=== PATIENT | female | born 2000 | race Caucasian/White ===

== ENCOUNTER 2019-07-04 10:05 | Day surgery (SDC) | payer BC ==
[2019-07-04] VITALS (19 sets, daily range): BP systolic 113–140; BP diastolic 49–81; PULSE 77–85; RESP 15–22; Ht 160 cm; Wt 113.3 kg
[~2019-07-04] VITALS: Ht 160 cm; Wt 113.3 kg
[~2019-07-04 10:05] MED LIST: CEFAZOLIN 2 GM/50 ML (PMX) 50 ML IVPB SCH; KETOROLAC 30 MG INJ ONE; LIDOCAINE 1% (MDV) 20 ML INJ ONE; MIDAZOLAM 1 MG/ML 2 ML INJ ONE; OMEP20CA16 PO; PROPOFOL 20 ML ONE; ROCURONIUM 50 MG INJ ONE; ROPIVACAINE 0.5 % 30 ML VIAL ONE; SOD CHLORIDE 0.9% 1,000 ML IV ONE; SUGAMMADEX SODIUM 200 MG/2 ML VIAL IV ONE
--- NOTE | 2019-07-04 12:18 | PREAC ---
Date/Time of Note Date/Time of Note DATE: 07/04/19 TIME: 12:17 Anesthesia Eval and Record Evaluation Time Pre-Procedure Interview DATE: 07/04/19 TIME: 12:17 Age 18 Sex female NPO: 8 hrs Preoperative diagnosis ventral hernia Planned procedure repair with mesh Past Medical History Past Medical History: Includes GI: Morbid obesity Surgery & Anesthesia Issues No known issue Meds Anticoagulation: No Beta Chuyita within 24 hr: No Reason Beta Chuyita not given: Pt. not on B-Chuyita Reported Medications Omeprazole* (Omeprazole*) 20 Mg Capsule.dr, 20 MG PO DAILY, #30 CAP 07/04/19 Current Medications Cefazolin Sodium/ Dextrose 50 ml @ 100 mls/hr PRE-OP IVPB ; Start 07/04/19 at 06:00; Stop 07/04/19 at 15:00 Sodium Chloride 1,000 ml @ 75 mls/hr [id number] ONCE IV Last administered on 07/04/19at 11:12; Admin Dose 75 MLS/HR; Start 07/04/19 at 06:00; Stop 07/04/19 at 19:19 Meds reviewed: Yes Allergies Coded Allergies: No Known Allergy (Unverified , 07/04/19) Allergies Reviewed: Yes Labs/Studies Labs Reviewed: Reviewed by anesthesiologist test: Negative Pre-procedure Exam Last vitals Vital Signs Date Temp Pulse Resp B/P (MAP) Pulse Ox O2 O2 Flow FiO2 Time Delivery Rate 07/04/19 97.5 80 16 140/72 98 Room Air 11:12 (94) Airway: Adequate mouth opening, Adequate thyromental dist Mallampati: Mallampati IV Teeth: Normal Lung: Normal Heart: Normal ASA Physical Status ASA physical status: 2 Emergency: None Pre-operative Attestations Prior to commencing anesthesia and surgery, the patient was re-evaluated, there was verification of: *The patient's identity *The results of appropriate recent lab work and preoperative vital signs *The above evaluation not changing prior to induction *Anesthetic plan, risk benefits, alternative and complications discussed with patient/family; questions answered; patient/family understands, accepts and wishes to proceed. DEIRDRE MATTHEW DO Jul 04, 2019 12:18
[2019-07-04] MEDS ORDERED: MIDAZOLAM 1 MG/ML 2 ML INJ ONE ×2 (12:20→13:50)
[2019-07-04] MEDS ORDERED: SCOPOLAMINE 1.5 MG PATCH ONE (12:20)
[2019-07-04] MEDS ORDERED: LIDOCAINE 2% (SDV) 5 ML INJ ONE (12:20)
[2019-07-04] MEDS ORDERED: HYDROmorphONE 1 MG/5 ML IV SYRINGE IV PRN ×3 (12:30)
[2019-07-04] MEDS ORDERED: ROPIVACAINE 0.5 % 30 ML VIAL ONE (12:51)
[2019-07-04] MEDS ORDERED: POLYMYXIN/BACITRACIN 1L IRRIG IRR ONE (13:00)
[2019-07-04] MEDS ORDERED: CEFAZOLIN 1 GM INJ ONE (13:04)
[2019-07-04] MEDS ORDERED: ONDANSETRON 4 MG INJ ONE (13:05)
[2019-07-04] MEDS ORDERED: DEXAMETHASONE 4 MG/ML 5 ML INJ ONE (13:07)
[2019-07-04] MEDS ORDERED: KETOROLAC 30 MG INJ ONE ×2 (13:07→14:52)
[2019-07-04] MEDS ORDERED: SUGAMMADEX SODIUM 200 MG/2 ML VIAL IV ONE (13:42)
[2019-07-04] MEDS ORDERED: FENTAnyl 50 MCG/ML VIAL ONE (13:51)
--- NOTE | 2019-07-04 13:51 | OPR ---
Date/Time of Note Date/Time of Note DATE: 07/04/19 TIME: 13:46 Operative Report Procedure Date: Jul 04, 2019 Preoperative Diagnosis incarcerated ventral hernia Postoperative Diagnosis same Operation/Procedure Performed 1. open incarcerated ventral hernia repair cpt code 92630 2. implantation of polypropylene 15 cm x 15 cm mesh cpt code 48596 3. open lysis of adhesions 4. localized adjacent tissue transfer with the use of skin flaps 24 sq cm defect of the abdomen Surgeon see signature line Dish Technician none Anesthesia Type: general Estimated Blood Loss: 0 - 10 ml's Transfusion none Specimen hernia sac Grafts/Implants none Complications none Pt Condition Post Procedure: stable Indications This is a 18-year-old female with incarcerated large ventral hernia. She requires surgical repair. Risks alternatives benefits and personal were discussed the patient. Patient expressed understanding and consents to the operation. Procedure Description Patient is taken to the OR and prepped and draped in usual sterile fashion. Surgical timeout was performed. IV antibiotics given. Midline incision was made with a 10 blade. Dissection with cautery was carried down to the hernia. The hernia and the hernia sac is encountered. Lysis of adhesions was performed to allow meticulous mobilization of the hernia sac and contents. The hernia was then manually reduced. The hernia sac is then excised. Fascial edges were freshened and the fascia was identified. 15 x 15 cm Prolene mesh was then secured in place with interrupted #1 Prolene as an underlay mesh. Good hemostasis established. Overlying the mesh the hernia defect was then closed primarily with a running #1 loop PDS. Again good hemostasis established. The wound was then irrigated with antibiotic irrigation. Due to large tissue defect localization just transfer with his skin flaps were performed. Multilayer closed with interrupted 3-0 Vicryl and skin micheal. A tap block was provided by the anesthesiologist at the beginning the case. Dry dressings were applied. Josefina CHAPMAN Jul 04, 2019 13:51
[2019-07-04] MEDS ORDERED: HYDROCODONE/APAP (5/325) TAB PO ONE (14:00)
--- NOTE | 2019-07-04 14:15 | PAC ---
Date/Time of Note Date/Time of Note DATE: 07/04/19 TIME: 14:15 Post-Anesthesia Notes Post-Anesthesia Note Last documented vital signs Vital Signs Date Temp Pulse Resp B/P (MAP) Pulse Ox O2 O2 Flow FiO2 Time Delivery Rate 07/04/19 97.5 80 16 140/72 98 Room Air 11:12 (94) Activity: WNL Respiratory function: WNL Cardiovascular function: WNL Mental status: Baseline Pain reasonably controlled: Yes Hydration appropriate: Yes Nausea/Vomiting absent: Yes DEIRDRE MATTHEW DO Jul 04, 2019 14:15
[2019-07-04] MEDS ORDERED: KETOROLAC 30 MG INJ IV STA (14:44)
[2019-07-04] MEDS ORDERED: ACETAMINOPHEN 1000MG/100ML IV 100 ML ONE (14:52)
[2019-07-04] MEDS ORDERED: ACETAMINOPHEN 1000MG/100ML IV 100 ML IVPB ONE (15:00)
== END 2019-07-04 16:09 | disposition home or self-care (01) ==
LOC: SDS 10:05
PROVIDERS: ATTEND Surgery
DX: K43.6 Other and unspecified ventral hernia with obstruction, without gangrene (principal); N73.6 Female pelvic peritoneal adhesions (postinfective)
CPT/HCPCS: 84703; 88302; J0131; J0690; J1100; J1170; J1885; J2250; J2405; J2795; J3010